=== PATIENT | female | born 1985 | race American Indian/Alaskan Native ===

== ENCOUNTER 2016-10-15 12:54 | Outpatient (CLI) | payer OTHER | END 2016-10-15 15:50 | disposition home or self-care (01) | LOC: LAB 12:54 → TRG 15:25 → LAB 15:50 | PROVIDERS: ATTEND Obstetrics & Gynecology | DX: O36.0130 Maternal care for anti-D [Rh] antibodies, third trimester, not applicable or unspecified (principal); Z3A.32 32 weeks gestation of pregnancy | CPT/HCPCS: 86850; 86900; 86901; 96372; J2790 ==